=== PATIENT | female | born 1960 ===

== ENCOUNTER 2021-01-25 10:04 | Outpatient (CLI) | payer OTHER ==
[2021-02-21] MEDS ORDERED: ZESTRIL10 M1 PO (08:47)
[2021-02-21] MEDS ORDERED: SYMBICORT 16010.2 GM IH (08:47)
[2021-02-21] MEDS ORDERED: CLARITIN10 MG PO (08:48)
[2021-02-21] MEDS ORDERED: DUPIXENT200 MG/1.1 (08:48)
[2021-02-21] MEDS ORDERED: SINGULAIR10 MG PO (08:48)
[2021-02-21] MEDS ORDERED: OMEPRAZOLE20 MG PO (08:49)
[2021-02-21] MEDS ORDERED: ARNUITY ELLIPT50 MCG IH (08:49)
[2021-02-21] MEDS ORDERED: MULTI VITAMIN1 EACH PO (08:50)
[2021-02-21] MEDS ORDERED: LIPITOR40 MG PO (08:50)
[2021-02-21] MEDS ORDERED: PEPCID40 MG PO (08:50)
== END 2021-01-25 12:59 | disposition home or self-care (01) ==
LOC: OFIC 805 10:04
PROVIDERS: ATTEND Otolaryngology Otology & Neurotology
DX: H70.12 Chronic mastoiditis, left ear (principal); H90.12 Conductive hearing loss, unilateral, left ear, with unrestricted hearing on the contralateral side; H73.822 Atrophic nonflaccid tympanic membrane, left ear

== ENCOUNTER 2021-02-24 05:36 | Day surgery (SDC) | payer OTHER ==
[~2021-02-24 05:36] MED LIST: ARNUITY ELLIPT50 MCG IH; CLARITIN10 MG PO; DUPIXENT200 MG/1.1; LIPITOR40 MG PO; MULTI VITAMIN1 EACH PO; OMEPRAZOLE20 MG PO; PEPCID40 MG PO; SINGULAIR10 MG PO; SYMBICORT 16010.2 GM IH; ZESTRIL10 M1 PO
[2021-02-24] MEDS ORDERED: AMOXICILLIN500 M1 PO (10:19)
[2021-02-24] MEDS ORDERED: OCUFLOX5 ML OTIC (10:19)
== END 2021-02-24 12:15 | disposition home or self-care (01) ==
LOC: CIR.AMB 05:36
PROVIDERS: ATTEND Otolaryngology Otology & Neurotology
DX: H90.A12 Conductive hearing loss, unilateral, left ear with restricted hearing on the contralateral side (principal); H90.12 Conductive hearing loss, unilateral, left ear, with unrestricted hearing on the contralateral side; H70.12 Chronic mastoiditis, left ear; H73.812 Atrophic flaccid tympanic membrane, left ear; H71.92 Unspecified cholesteatoma, left ear; H65.32 Chronic mucoid otitis media, left ear; Z20.822 Contact with and (suspected) exposure to COVID-19

== ENCOUNTER 2021-02-28 12:51 | Outpatient (CLI) | payer OTHER ==
[~2021-02-28 12:51] MED LIST changes: +AMOXICILLIN500 M1 PO; +OCUFLOX5 ML OTIC
== END 2021-02-28 13:45 | disposition home or self-care (01) ==
LOC: OFIC 805 12:51
PROVIDERS: ATTEND Otolaryngology Otology & Neurotology
DX: H70.892 Other mastoiditis and related conditions, left ear (principal); H90.12 Conductive hearing loss, unilateral, left ear, with unrestricted hearing on the contralateral side; H73.812 Atrophic flaccid tympanic membrane, left ear